=== PATIENT | female | born 1990 | race Hispanic/Latino ===

== ENCOUNTER 2019-02-23 10:34 | Observation (INO) ==
[2019-02-23 12:07] LABS: URINE SOURCE CLEAN CATCH
[2019-02-23 12:09] LABS: BASO# 0.02 X1000 (0.0-0.2); BASO% 0.1 % (0.0-0.8); EOS# 0.21 X1000 (0.0-0.7); EOS% 1.5 % (0.0-10.0); HEMOGLOBIN 10.9 g/dL (12.0-16.0); IMM GRAN# 0.02 X1000 (0.0-0.04); IMM GRAN% 0.1 % (0.0-0.5); LYMPH# 2.72 X1000 (1.2-3.4); LYMPH% 19.9 % (20.5-51.1); MCH 22.3 PG (27-31); MCHC 31.1 g/dL (33-37); MCV 71.6 FL (81-99); MONO# 0.73 X1000 (0.11-0.59); MONO% 5.3 % (1.7-9.3); MPV 9.9 FL (7.4-10.4); NEUT# 9.97 X1000 (1.4-6.5); NEUT% 73.1 % (42.2-75.2); PLT 455 X1000 (130-400); RBC 4.89 XMIL (4.2-5.4); WBC 13.67 X1000 (4.8-10.8)
[2019-02-23] MEDS ORDERED: ZOFRAN ODT PO ONE (12:09)
[2019-02-23 12:10] LABS: BILIRUBIN URINE NEGATIVE (NEGATIVE); BLOOD URINE LARGE (NEGATIVE); COLOR STRAW; GLUCOSE URINE NEGATIVE (NEGATIVE); KETONE URINE 20 mg/dL (NEGATIVE); LEUKOCYTES URINE NEGATIVE (NEGATIVE); NITRITE URINE NEGATIVE (NEGATIVE); PH URINE 6.5; PROTEIN URINE NEGATIVE (NEGATIVE); SP GRAVITY URINE 1.002; TURBIDITY URINE CLEAR (CLEAR); UROBILINOGEN URINE NORMAL (NORMAL)
[2019-02-23 12:12] LABS: UR EPITHELIAL CELLS <10 /HPF (<10); URINE BACTERIA NEGATIVE /HPF; URINE WBC <10 /HPF (<10)
[2019-02-23 12:14] LABS: AGAP 11; ALB/GLOB RATIO 1.7; ALBUMIN 4.4 g/dL (3.5-5.0); ALKALINE PHOSPHATASE 43 U/L (32-104); AMYLASE 48 U/L (20-200); BUN 7 mg/dL (8-22); CALCIUM 9.4 mg/dL (8.8-10.2); CHLORIDE 102 mmol/L (98-107); COSMO 271; CREATININE 0.8 mg/dL (0.5-0.9); ESTIMATED GFR > 60; GLUCOSE 90 mg/dL (70-104); GOT 18 U/L (10-30); GPT 18 U/L (10-36); LIPASE 18 U/L (13-60); POTASSIUM 4.1 mmol/L (3.5-5.1); SODIUM 137 mmol/L (136-145); TCO2 24 mmol/L (25-35); TOTAL BILIRUBIN 0.22 mg/dL (0.20-1.00)
[2019-02-23 12:20] LABS: BANDS 2 % (0-1); EOS 3 % (1-10); LYMPHS 21 % (21-51); MONO 5 % (1-9); SEGS 69 % (42-75)
[2019-02-23 12:21] LABS: ANISOCYTOSIS 2+; LARGE PLATELETS OCCASIONAL; MICROCYTOSIS 2+
--- NOTE | 2019-02-23 12:52 | PROVIDER DOCUMENTATION ---
This chart was entered by Brynn Daniels Scribe, acting as scribe for Deborah Puente MD. HPI-Abdominal Pain/GI Problem - General Chief Complaint: Abdominal Pain Stated Complaint: REYMUNDO-REFERRED PT Time Seen by Provider: 02/23/19 11:03 Source: patient Allergies/Adverse Reactions: Patient Allergies Allergy/AdvReac Type Severity Reaction Status Date / Time amoxicillin Allergy RASH Verified 02/23/19 12:19 codeine Allergy RASH Verified 02/23/19 12:19 latex Allergy RASH Verified 02/23/19 12:19 Penicillins Allergy RASH Verified 02/23/19 12:19 venom-honey bee AdvReac HIVES Verified 02/23/19 12:19 [bee venom (honey bee)] Home Medications: Home Medication List Medication Instructions Recorded Confirmed Last Taken Type Omeprazole [Prilosec] 40 mg PO DAILY #30 capsule. 02/19/16 08/04/18 Unknown Rx Cetirizine [Zyrtec] 10 mg PO DAILY #20 tab 08/04/18 Unknown Rx Norethindrone-Ethinyl Estrad 1 ea PO BID #60 tab 08/04/18 Unknown Rx [[facility]] Prednisone 20 mg PO DIRECTED #18 tab 08/04/18 Unknown Rx - History of Present Illness-ABD Nature of Presenting Problems: Patient is a 28 year old female who presents with RUQ abdominal pain, nausea and diarrhea that started 2 days ago. Reports she was seen at [facility] and admitted yesterday but left AMA because the nurses kept trying to give her penicillin. Denies vomiting and rectal bleeding. RN states Dr. Sandhu wants patient to have a CT abdomen and pelvis with oral and iv contrast. Abdominal Pain Onset Location: reports: RUQ Pain Radiation: reports: no radiation Quality of Pain: reports: aching, cramping Severity in ED: reports: mild Onset/Duration: reports: 2 days ago Timing: reports: still present, intermittent Activities at Onset: reports: light activity Associated Symptoms: reports: diarrhea, nausea. denies: vomiting Dark Stools Present?: reports: none noticed Rectal Bleeding: reports: none Emesis Description: reports: none Bruising or Bleeding Gums?: No Similar Symptoms Previously?: Yes Recently seen or treated by another doctor?: Yes Review of Systems - Adult - REVIEW OF SYSTEMS - ADULT Constitutional: reports: no symptoms reported. denies: chills, fever, fatique Eyes: reports: no symptoms reported Ears, Nose, Mouth & Throat: reports: no symptoms reported Cardiovascular: reports: no symptoms reported Respiratory: reports: no symptoms reported Gastrointestinal: reports: see HPI, abdominal pain (RUQ), diarrhea, nausea. denies: rectal bleeding, vomiting Genitourinary: reports: no symptoms reported Musculoskeletal: reports: no symptoms reported Integumentary: reports: no symptoms reported Neurological: reports: no symptoms reported Psychiatric: reports: no symptoms reported Endocrine: reports: no symptoms reported Hematologic/Lymphatic: reports: no symptoms reported Allergic/Immunologic: reports: no symptoms reported All Other Systems: Reviewed and Negative Past History - Adult - PAST MEDICAL HISTORY-ADULT Review of Records: reports: Old Records Reviewed, Nursing Assessment Review, Medications Reviewed, Social history reviewed & non-contributory. Major Childhood Illnesses: reports: denies history Cardiovascular: reports: denies history Respiratory: reports: asthma Gastrointestinal: reports: GERD Obstetrical/Gynecological: reports: denies history Genitourinary: reports: kidney stones Musculoskeletal: reports: denies history Neurological: reports: denies history Endocrine/Immune: reports: denies history Other Conditions: reports: denies history - PRIOR SURGERIES/PROCEDURES Surgical/Procedure History: reports: reviewed, not pertinent - IMMUNIZATION STATUS Childhood Immunizations: See Nurse Assessment Flu Vaccine: See Nurse Assessment - FAMILY HISTORY Family History: reviewed, not pertinent - SOCIAL HISTORY Smoking: cigarettes, greater than 1 pack/day Provider spent 3-5 mins advising pt. on dangers of tobacco.: Discussed manners to quit use, and f/u contacts for add'l counseling. Substance Use: denies Living Situation: family Physical Exam-General - PHYSICAL EXAM-ADULT Initial Vital Signs Reviewed: Yes - CONSTITUTIONAL General Appearance: alert, no apparent distress, obese. negative: lethargic, slow to respond - HEAD, EARS, NOSE, MOUTH & THROAT HENMT: normocephalic/atraumatic, moist mucous membranes. negative: angioedema, hearing deficit - RESPIRATORY Respiratory: chest non-tender, lungs clear, normal breath sounds. negative: crackles, rhonchi, stridor - CARDIOVASCULAR Cardiovascular: normal peripheral pulses, regular rate, rhythm. negative: tachycardia, systolic murmur - GASTROINTESTINAL (ABDOMEN) Abdominal Exam: normal bowel sounds, soft, tenderness (diffuse). negative: guarding, rebound - MUSCULOSKELETAL Extremity: non-tender, normal inspection. negative: deformity, erythema, swelling - SKIN Integumentary: normal color, normal turgor, warm/dry. negative: cyanosis, ecchymosis, erythema, jaundice - NEUROLOGIC Neurologic: grossly normal. negative: aphasia, facial droop - PSYCHIATRIC Psych/Mental Status: normal mood/affect, oriented x 3. negative: anxious Progress - PLAN OF CARE/RESULTS Progress/Plan/Lab Results: Vital Signs - 8 hr 02/23/19 10:37 02/23/19 10:46 02/23/19 10:47 Temperature 97.8 F Pulse Rate 105 H Respiratory Rate 20 Blood Pressure 135/90 115/83 O2 Sat by Pulse Oximetry 99 99 98 02/23/19 11:02 02/23/19 12:02 Temperature Pulse Rate Respiratory Rate Blood Pressure 113/78 122/98 O2 Sat by Pulse Oximetry 97 97 Bedside Urine ED: Urine Bedside Start: 02/23/19 11:52 Freq: ORDERED Status: Active Protocol: Activity Type Activity Date Activity User E-Sign Co-Sign Detail Recorded Client Recorded Date Recorded By Document 02/23/19 12:02 [id number] 02/23/19 12:02 [id number] 02/23/19 12:02 Point of Care [Bedside Point of Care] -Lot # [id number] - Results Negative -Control Line Visible? Yes Laboratory Results - last 24 hr 02/23/19 02/23/19 11:45 12:00 WBC 13.67 H RBC 4.89 Hgb 10.9 L Hct 35.0 L MCV 71.6 L MCH 22.3 L MCHC 31.1 L RDW Std Deviation 16.0 H Plt Count 455 H MPV 9.9 Immature Gran % (Auto) 0.1 Neut % (Auto) 73.1 Lymph % (Auto) 19.9 L [place] % (Auto) 5.3 Eos % (Auto) 1.5 Baso % (Auto) 0.1 Immature Gran # (Auto) 0.02 Neut # (Auto) 9.97 H Lymph # (Auto) 2.72 [place] # (Auto) 0.73 H Eos # (Auto) 0.21 Baso # (Auto) 0.02 Urine Source CLEAN CATCH Urine Color STRAW Urine Turbidity CLEAR Urine pH 6.5 Ur Specific [place] 1.002 Urine Protein NEGATIVE Ur Glucose (Stick) NEGATIVE Ur Ketones (Stick) 20 A Urine Blood LARGE A Urine Nitrite NEGATIVE Urine Bilirubin NEGATIVE Urobilinogen Dipstick NORMAL Urine Leukocytes NEGATIVE Orders Category Date Time Status ED: Urine Bedside ORDERED Care 02/23/19 11:[address] ABD/PELVIS W/PO AND IV CON [CT] Stat Exams 02/23/19 11:49 Ordered AMYLASE [CHEM] Stat Lab 02/23/19 11:45 Received CBC WITH DIFF [HEME] Stat Lab 02/23/19 11:45 Results COMPREHENSIVE METABOLIC PANEL [CHEM] Stat Lab 02/23/19 11:45 Received LIPASE [CHEM] Stat Lab 02/23/19 11:45 Received UA NIMS W/REFLEX CULT [URINALYSIS] Stat Lab 02/23/19 12:00 Results Ondansetron Odt [Zofran Odt] Med 02/23/19 12:09 Discontinued 4 mg PO NOW ONE Result Diagrams: 02/23/19 11:45 02/23/19 11:45 - CONSULTS/PCP/HOSPITALIST Notification #1 *Consult/PCP/Hospitalist*: Dr. Sandhu Time Discussed: 14:04 Reason/Comments: Dr. Puente consulted with Dr. Sandhu about patient. Consult Disposition: Admit (Dr. Novak states he will admit patient to his services.) Departure - Departure Date of Disposition Decision: 02/23/19 Time of Disposition Decision: 14:06 DIAGNOSIS: Colitis Abdominal pain Qualifiers: Abdominal location: generalized Qualified Code(s): R10.84 - Generalized abdominal pain Disposition: ADMITTED INPATIENT 09 Certified Medical Emergency: Emergent Condition: Fair - Critical Care Note This patient required my direct & personal management of CC.: No Attestation - Physician/ KIM Attestation Patient care was provided by Advanced Practice Provider:: No The physician spent face to face time with patient:: Yes Advanced Practice Provider documentation review:: Supervising physician onsite and consulted in the evaluation and care of this patient. The physician did have a face to face encounter with the patient. This chart was documented by the indicated scribe, (Brynn Daniels Scribe) and accurately reflects the services I performed and decisions made by me, Deborah Puente MD, as attested by the provider's signature.
[2019-02-23] MEDS ORDERED: LR 1,000 ML IV ONE (13:59)
[2019-02-23] MEDS ORDERED: ZOFRAN IV PRN ×2 (13:59→18:46)
[2019-02-23] MEDS ORDERED: ULTRAM PO PRN (14:05)
--- NOTE | 2019-02-23 14:19 | Diag Imaging Result Doc PS360 ---
EXAM: CT ABD/PELVIS W/PO AND IV CON INDICATION: abdominal pain TECHNIQUE: This exam was performed using automated exposure control, adjustment of mA or kV according to patient size, and/or use of iterative reconstruction technique. COMPARISON: Unenhanced CT of the abdomen and pelvis dated 02/22/2019 FINDINGS: There is minimal subsegmental atelectasis versus scarring in the lingula that is stable. There is mild hepatic steatosis that is stable. The spleen, pancreas, adrenal glands, kidneys, and urinary bladder are unremarkable. The reproductive tract is grossly unremarkable as imaged. Similar to what was seen on the previous study, there is a long segment of the terminal ileum that exhibits wall thickening and mild surrounding inflammatory stranding consistent with ileitis. The wall thickening is better appreciated with the oral contrast. As was stated on the previous study, Crohn's ileitis and infectious ileitis are considerations. As opposed to the previous study, the appendix appears clearly normal with the addition of contrast. There is oral contrast filling the entire lumen of the appendix. Appendicitis is not suspected. The small volume of free fluid layering in the pelvis is stable. The remainder of the GI tract is unchanged. IMPRESSION: 1.Stable thickening of the terminal ileum with surrounding inflammatory change. Consider Crohn's ileitis versus infectious ileitis. 2.There is no evidence of appendicitis on the current study. 3.Small volume free fluid layering in the pelvis is stable. Electronically signed by Dagoberto Galvez 02/23/2019 2:17 PM
[2019-02-23] MEDS ORDERED: FLAGYL PO SCH (17:00)
[2019-02-23] MEDS ORDERED: GOLYTELY PO ONE (18:00)
--- NOTE | 2019-02-23 19:51 | HISTORY AND PHYSICAL ---
ADMITTING DIAGNOSIS: Terminal ileitis. HISTORY OF PRESENT ILLNESS: A 28-year-old female who I had recently seen emergency department yesterday for similar complaints who left AMA. She had a CT scan that showed possible right lower quadrant inflammation but she had right upper quadrant pain but she did leave AMA. She comes back into the hospital after being directed by her primary care physician. She had a repeat CT scan that mostly confirms the possibility of terminal ileitis without any obvious signs of appendicitis. She is still hurting the right upper quadrant. PAST MEDICAL HISTORY: Irregular heart rate, gastroesophageal reflux disease, kidney stones, diverticulitis. PAST SURGICAL HISTORY: None. SOCIAL HISTORY: Current smoker. FAMILY HISTORY: Reviewed with patient, noncontributory. ALLERGIES: Amoxicillin, codeine, latex, penicillin. CURRENT MEDICATIONS: MAR reviewed. REVIEW OF SYSTEMS: A full 10 point review of systems obtained negative except as specified in HPI. PHYSICAL EXAMINATION: VITAL SIGNS: Patient is currently afebrile. Her vital signs are stable. GENERAL: No acute distress. Alert, interactive female looks stated age. HEENT: Normocephalic, atraumatic. Pupils equal, round, reactive to light. Mucous membranes moist. Oropharynx benign. NECK: Supple. Trachea midline. CARDIOVASCULAR: Regular rate and rhythm. LUNGS: Grossly clear. ABDOMEN: Soft, tender palpation right upper quadrant but no peritoneal signs. EXTREMITIES: Moves all extremities. NEUROLOGIC: Grossly intact. SKIN: No signs of jaundice. VASCULAR: All extremities perfused. LABORATORY: White blood count 13 which is up from yesterday at 10, hematocrit 35, platelet count 455,000. Remainder of labs reviewed. CT scan independently reviewed and reviewed with the radiologist and shows possibility of terminal ileitis. ASSESSMENT/PLAN: 28-year-old female with terminal ileitis. Terminal ileitis. At this time given the symptoms, there was concern she might have Crohn's. She has a longstanding gastroenterology doctor with Dr. Quintana but he does not come to the hospital so will consult Dr. Hernandez. I will put her on Levaquin and Flagyl given her leukocytosis. She may need to go on prednisone but will just defer to the GI doctors about starting that. ill start her on a clear liquid diet and monitor. cc: Edson Sandhu MD
--- NOTE | 2019-02-23 21:11 | GASTROENTEROLOGY CONSULTATION ---
DATE: 02/23/2019 REASON FOR CONSULTATION: Ileitis, diarrhea. HISTORY OF PRESENT ILLNESS: Ms. Mary Centeno is a 28-year-old woman, with past medical history of obesity, asthma, hypertriglyceridemia, history of diverticulitis, IBS, GERD, chronic leukocytosis, tobacco abuse, who presents with 4 days of cramping abdominal pain and diarrhea with watery stools. The patient reports being in her usual state of health with 2 to 3 bowel movements per day at baseline until Wednesday night. That evening, she had a [employer] sandwich and awoke around 1:30 in the morning with lower abdominal cramping and profuse diarrhea. She says that her cramping is different from her history of diverticulitis. It later started to radiate to her upper abdomen. She describes it as being severe, aggravated with p.o. intake, and associated with chills and nausea without vomiting. No weight loss, rectal bleeding, melena, fevers. 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 No changes in her diet. She reports having a colonoscopy about [address] Quintana that showed diverticulosis with no evidence of Crohn disease. She does not take any NSAIDs. No blood thinners. She does have a family history notable for ulcerative colitis and colon cancer in her mother, diagnosed in her 40s. REVIEW OF SYSTEMS: As per HPI, otherwise a 12 point review of systems is negative. PAST MEDICAL HISTORY: As per HPI. PAST SURGICAL HISTORY: She had a D and C for dysfunctional uterine bleeding. MEDICATIONS: 1. Omeprazole. 2. Probiotic. 3. Tylenol as needed for pain. ALLERGIES: Amoxicillin, penicillin, codeine, latex, venom from bee honey. SOCIAL HISTORY: She smokes a pack a day. No alcohol or drug use. PHYSICAL EXAMINATION: Vital Signs: Temperature 97.8, heart rate 92, respiratory rate 20, blood pressure 121/83, O2 saturation 98% on room air. General: Patient is awake, alert, oriented, no acute distress. HEENT: Sclerae anicteric. Moist mucous membranes. Extraocular motor intact. Neck: Supple. No JVD or lymphadenopathy. Cardiac: Regular rate and rhythm. No murmurs, rubs, or gallops. Lungs: Clear to auscultation bilaterally. No wheezing. Abdomen: Obese, soft, minimally tender in the upper abdomen. Bowel sounds are present. No rebound or guarding. Extremities: No clubbing, cyanosis, or edema. Neurologic: Nonfocal. LABS: White count of 13.67, hemoglobin of 10.9, platelets of 455,000. Neutrophils are 69% with 2% bands. Sodium 137, potassium 4.1, chloride 102, bicarb 24, BUN of 7, creatinine 0.8. LFTs are normal. Lipase of 18. UA shows large blood and red blood cells 10 to 20. IMAGING: Right upper quadrant all ultrasound shows a fatty liver, otherwise normal. CT of the abdomen and pelvis with oral and IV contrast shows stable thickening of the terminal ileum with surrounding inflammatory change. Consider Crohn's ileitis versus infectious ileitis. Small volume of free fluid layering in the pelvis is stable. No evidence of appendicitis. ASSESSMENT AND PLAN: Ms. Mary Centeno is a 28-year-old woman, with past medical history of gastroesophageal reflux disease, irritable bowel syndrome, family history notable for ulcerative colitis and colorectal cancer, history of diverticulitis, who presents with 5 days of abdominal pain and diarrhea, found to have ileitis on her CT. 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 However, there are no signs of colitis seen on her CT. We will rule out Clostridium difficile with studies and plan to prep the patient tonight for diagnostic colonoscopy tomorrow to evaluate for inflammatory bowel disease. Her labs are notable for leukocytosis, which is chronically elevated and followed by Dr. Perea as an outpatient. The patient reports that this was thought to be secondary to smoking. She also has notable anemia with a hemoglobin of 10.9, MCV of 71.6. We do not have any iron studies available for review here. She had iron studies back in 2017 that showed iron deficiency anemia with a ferritin of 7. B12 and folate at that time were normal. She also has thrombocytosis with elevated platelet counts, which are likely reactive in the setting of infectious versus inflammatory diarrhea. She was started on Levaquin and Flagyl, given intravenous fluids and antiemetics, as well as tramadol for pain. Thank you for this consult. Will follow with you. Please call with any questions or concerns. cc: Edson Sandhu MD
[2019-02-24] MEDS ORDERED: LEVAQUIN 750 MG/D5W 750 MG/150 ML IVPB IV SCH (05:30)
[2019-02-24] MEDS ORDERED: ULTRAM PO PRN (05:31)
[2019-02-24] MEDS ORDERED: DIPRIVAN 1% ONE ×2 (07:16→11:26)
[2019-02-24] MEDS ORDERED: FENTANYL ONE (07:19)
[2019-02-24] MEDS ORDERED: FLAGYL 500 MG/NS 500 MG/100 ML IVPB IV SCH (08:00)
[2019-02-24] MEDS ORDERED: LEVAQUIN PO SCH (09:00)
[2019-02-24] MEDS ORDERED: VERSED ONE (11:05)
--- NOTE | 2019-02-24 11:41 | ENDOSCOPY OPERATIVE NOTE ---
[facility] ENDOSCOPY OPERATIVE NOTE , PATIENT: Mary Centeno ADM DATE: 02/24/2019 MR #: [id number] : 1990 COLONOSCOPY PROCEDURE REPORT PROCEDURE DATE: 02/24/2019 SURGEON: Michael Hernandez MD STATUS: inpatient DATA ASSISTANT: PREOPERATIVE DIAGNOSIS: The patient is a 28 yr old female here for a colonoscopy due to an abnormal CT. PROCEDURE PERFORMED: Colonoscopy with biopsy MEDICATIONS: Per Anesthesia PREP TYPE: GoLytely
[2019-02-24 12:05] VITALS: BP 121/72
--- NOTE | 2019-02-24 13:40 | GENERAL SURGERY PROGRESS NOTE ---
DATE: 02/24/2019 SUBJECTIVE: Patient seems to be doing okay. There is a plan for colonoscopy today by Dr. Hernandez. OBJECTIVE: Vital Signs: Patient is currently afebrile. Her vital signs are stable. General: No acute distress. HEENT: Normocephalic, atraumatic. Pupils equal, round, reactive to light. Mucous membranes moist. Oropharynx benign. Neck: Supple. Trachea midline. Cardiovascular: Regular rate and rhythm. Lungs: Grossly clear. Abdomen: Soft, less tender, no peritoneal signs. Extremities: Moves all extremities. Neurologic: Grossly intact. Skin: No signs of jaundice. Vascular: All extremities perfused. ASSESSMENT AND PLAN: A 28-year-old female with terminal ileitis. Terminal ileitis. At this time, plan on colonoscopy today by Gastroenterology. She is on Levaquin and Flagyl. Depending on what they find, she could potentially be discharged today versus tomorrow versus per GI recommendation. cc: Edson Sandhu MD
[2019-02-24] MEDS ORDERED: PERIDEX MT SCH (21:00)
== END 2019-02-24 12:38 | disposition home or self-care (01) ==
LOC: MERGE 10:34 → ED 10:34 → INTOOBSV 10:35 → 4N 10:35
PROVIDERS: ADMIT Surgery; ATTEND Surgery
CPT/HCPCS: 74177; 80053; 81001; 82150; 83690; 85025; 87324; 88305; 88313; A9270; J1956; J2250; J2405; J3010; J7120; Q9967; S0030